=== PATIENT | female | born 1950 | race Caucasian/White ===

== ENCOUNTER 2018-07-29 10:08 | Emergency (ER) | payer MEDICARE, OTHER ==
[2018-07-29] MEDS ORDERED: IBUPROFEN 600 MG TABLET ONE (10:49)
== END 2018-07-29 11:41 | disposition home or self-care (01) ==
LOC: EDH 10:08
DX: S93.602A Unspecified sprain of left foot, initial encounter (principal); K21.9 Gastro-esophageal reflux disease without esophagitis; Z98.890 Other specified postprocedural states; Z88.2 Allergy status to sulfonamides; W18.39XA Other fall on same level, initial encounter; Y93.01 Activity, walking, marching and hiking; Y92.89 Other specified places as the place of occurrence of the external cause; Y99.8 Other external cause status
CPT/HCPCS: 73630